=== PATIENT | female | born 1985 | race Two or more races ===

== ENCOUNTER → 2016-09-04 | Outpatient (CLI) | payer MEDICARE | LOC: RAD 15:13 | PROVIDERS: ATTEND Anesthesiology Pain Medicine | DX: M54.5 Low back pain (principal) | CPT/HCPCS: 72114 ==

== ENCOUNTER → 2016-09-17 | Outpatient (CLI) | payer MEDICAID, MEDICARE, OTHER ==
--- NOTE | 2016-09-17 13:09 | RADIOLOGY REPORT (SQ) ---
EXAM DESCRIPTION: MRI LUMBAR SPINE WITHOUT COMPLETED DATE/TIME: 09/17/2016 11:24 am REASON FOR STUDY: LOW BACK PAIN M54.5 LOW BACK PAIN COMPARISON: Lumbar spine films 09/04/2016 TECHNIQUE: Sagittal and Axial imaging includes T1, T2, STIR and gradient echo sequences. Coronal T2/ HASTE imaging. LIMITATIONS: None. FINDINGS: VISUALIZED UPPER ABDOMEN: Limited evaluation. No acute or suspicious findings suggested. SEGMENTATION: No transitional anatomy. The lowest well-developed disc space is labeled L5-S1. ALIGNMENT: Anatomic. VERTEBRAE: Intact. BONE MARROW: Normal. No marrow replacement or reactive changes. DISC SIGNAL: Normal. No significant abnormal signal or loss of height. POSTERIOR ELEMENTS: Generally intact. No pars defect evident. Mild diffuse lumbar facet arthropath y HARDWARE: None in the spine. CORD AND CONUS: Normal in size and signal intensity. Conus at the T12-L1 level. SOFT TISSUES: No aortic aneurysm seen. No bulky retroperitoneal adenopathy or mass. No paraspinal mas s or fluid. L1-L2: No significant spinal stenosis or exit foraminal stenosis. Mild bilateral facet and ligament hypertrophy. L2-L3: No significant spinal stenosis or exit foraminal stenosis.Mild bilateral facet and ligament hy pertrophy. L3-L4: No significant spinal stenosis or exit foraminal stenosis.Mild bilateral facet and ligament hy pertrophy. L4-L5: No significant spinal stenosis or exit foraminal stenosis.Mild bilateral facet and ligament hy pertrophy. L5-S1: No significant spinal stenosis or exit foraminal stenosis.Mild bilateral facet and ligament hy pertrophy. LOWER THORACIC: Incompletely imaged. No stenosis seen. SACRUM: Advanced right SI joint arthritis with joint space narrowing bony sclerosis osteophyte format ion and reactive fatty changes in the adjacent sacrum and innominate bone on the right. OTHER: No other significant findings. IMPRESSION: Right sacroiliac joint arthritis. Mild diffuse lumbar facet hypertrophy. No disc protrusion/herniation or significant lumbar central canal or foraminal stenosis TECHNICAL DOCUMENTATION: JOB ID: [id number] [employer]- All Rights Reserved
== END ==
LOC: RAD 10:28
PROVIDERS: ATTEND Anesthesiology Pain Medicine
DX: M54.5 Low back pain (principal)
CPT/HCPCS: 72148

== ENCOUNTER 2016-12-13 17:21 | Emergency (ER) | payer MEDICARE ==
[2016-12-13 17:29] VITALS: BP 129/60
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
--- NOTE | 2016-12-13 21:25 | RADIOLOGY REPORT (SQ) ---
EXAM DESCRIPTION: FOREARM LEFT COMPLETED DATE/TIME: 12/13/2016 9:00 pm REASON FOR STUDY: LEG PAIN, FOREARM PAIN COMPARISON: None. NUMBER OF VIEWS: Two views. TECHNIQUE: Two radiographic images acquired of the left forearm, including elbow and wrist in at [address] one projection. LIMITATIONS: None. FINDINGS: MINERALIZATION: Normal. BONES: No acute fracture. No worrisome bone lesions. SOFT TISSUES: No obvious swelling or foreign body. OTHER: No other significant finding. IMPRESSION: NO RADIOGRAPHIC EVIDENCE OF ACUTE INJURY. TECHNICAL DOCUMENTATION: JOB ID: [id number] [employer]- All Rights Reserved
== END 2016-12-13 20:18 | disposition home or self-care (01) ==
LOC: ER 17:21 → EEVIPCON 17:21 → ER 20:18
DX: S80.12XA Contusion of left lower leg, initial encounter (principal); S50.12XA Contusion of left forearm, initial encounter; Y04.2XXA Assault by strike against or bumped into by another person, initial encounter; G89.29 Other chronic pain; M54.9 Dorsalgia, unspecified; F17.210 Nicotine dependence, cigarettes, uncomplicated

== ENCOUNTER 2017-01-31 01:23 | Emergency (ER) | payer MEDICARE ==
[2017-01-31] MEDS ORDERED: NORMAL SALINE 1000 ML 1,000 ML IV ONE (01:51)
[2017-01-31] MEDS ORDERED: ONDANSETRON HCL INJ/PF 4 MG/2 ML SDV IV ONE (01:51)
--- NOTE | 2017-01-31 02:21 | ER Document Report ---
ED General - General Chief Complaint: Abdominal Pain Stated Complaint: STOMACH PAIN AND BACK PAIN Time Seen by Provider: 01/31/17 01:50 Notes: Patient is a 32-year-old female who presents with 2 days of right upper quadrant abdominal pain. Does describe it as a dull, throbbing, constant pain. Nothing improves or worsens the pain. She denies any associated diarrhea but does note several episodes of nonbilious vomiting. Has been able to tolerate oral intake and states that this is not worsen her pain. She has a history of similar symptoms in the past for which she was hospitalized when she lived in [place] and was told that she had a thickened gallbladder wall and a dilated common bile duct. She apparently had an ERCP at that time and was told that there was no further indication for surgical management or any other long-term follow-up regarding her biliary system. She has not seen her primary care doctor regarding today's concerns. No fever or constitutional symptoms. TRAVEL OUTSIDE OF THE U[place]S. IN LAST 30 DAYS: No - Related Data Allergies/Adverse Reactions: oral contrast Allergy (Uncoded 12/13/16 17:25) Past Medical History - General Information source: Patient - Social History Smoking Status: Current Every Day Smoker Frequency of alcohol use: None Drug Abuse: None Lives with: Spouse/Significant other Family History: Reviewed & Not Pertinent Patient has suicidal ideation: No Patient has homicidal ideation: No Renal/ Medical History: Denies: Hx Peritoneal Dialysis Traumatic Medical History: Reports: Hx Fractures - back Past Surgical History: Reports: Hx Orthopedic Surgery - bilateral carpal tunnel , hand surgery Review of Systems - Review of Systems Notes: Constitutional: Negative for fever. HENT: Negative for sore throat. Eyes: Negative for visual changes. Cardiovascular: Negative for chest pain. Respiratory: Negative for shortness of breath. Gastrointestinal: Positive for abdominal pain and vomiting Genitourinary: Negative for dysuria. Musculoskeletal: Negative for back pain. Skin: Negative for rash. Neurological: Negative for headaches, weakness or numbness. 10 point ROS negative except as marked above and in HPI. Physical Exam - Vital signs Vitals: Temp Pulse Resp BP Pulse Ox 99.0 F 114 H 16 118/70 100 01/31/17 01:30 01/31/17 01:30 01/31/17 01:30 01/31/17 01:30 01/31/17 01:30 Interpretation: Tachycardic Notes: PHYSICAL EXAMINATION: GENERAL: Well-appearing, well-nourished and in no acute distress. HEAD: Atraumatic, normocephalic. EYES: Pupils equal round and reactive to light, extraocular movements intact, sclera anicteric, conjunctiva are normal. ENT: nares patent, oropharynx clear without exudates. Moist mucous membranes. NECK: Normal range of motion, supple without lymphadenopathy LUNGS: Breath sounds clear to auscultation bilaterally and equal. No wheezes rales or rhonchi. HEART: Regular rate and rhythm without murmurs ABDOMEN: Soft, mild right upper quadrant abdominal pain to palpation without any additional localized tenderness, normoactive bowel sounds. No guarding, no rebound. No masses appreciated. EXTREMITIES: Normal range of motion, no pitting or edema. No cyanosis. NEUROLOGICAL: No focal neurological deficits. Moves all extremities spontaneously and on command. PSYCH: Normal mood, normal affect. SKIN: Warm, Dry, normal turgor, no rashes or lesions noted. Course - Re-evaluation Re-evalutation: 01/31/17 02:17 Patient presents with 2 days of right upper quadrant abdominal pain, found a focal right upper quadrant abdominal tenderness on examination. No rebound or guarding. Patient is otherwise well in appearance, does not appear in any significant distress or discomfort. No CVA tenderness. Overall low clinical suspicion for acute cholecystitis given normal vitals but given her localized right upper quadrant abdominal tenderness, will proceed with right upper quadrant ultrasound to further exclude. Patient has no focal epigastric abdominal tenderness and her clinical history is not consistent with acute pancreatitis. Patient does report that she has had a significant amount of coughing and sneezing recently and feels she may have pulled a muscle was the source of her abdominal pain. This is a possibility although again I would like to exclude more concerning pathologies. If labs and ultrasound are reassuring will plan for symptomatic control and discharge home. 01/31/17 04:35 Right upper quadrant ultrasound does demonstrate mild gallbladder wall thickening and a dilated common bile duct although no evidence of pericholecystic fluid or gallstones. Repeat exam does not show any significant right upper quadrant abdominal tenderness. Patient continues to be well in appearance. All labs including LFTs and bilirubin levels are normal. I do not suspect acute choledocholithiasis or distal obstruction given normal laboratory functions. Patient reports that in the past she has been told that her common bile duct is dilated and actually significantly more than as described tonight on the ultrasound. She reports she is also been told in the past during a prior hospitalization that her gallbladder wall is thick. I have encouraged her to follow-up with her surgeon as an outpatient to consider possible cholecystectomy if she continues to have pain. At this time will discharge with return precautions and follow-up recommendations. Verbal discharge instructions given a the bedside and opportunity for questions given. Medication warnings reviewed. Patient is in agreement with this plan and has verbalized understanding of return precautions and the need for primary care follow-up in the next 24-72 hours. - Vital Signs Vital signs: Temp Pulse Resp BP Pulse Ox 98.1 F 94 17 121/78 100 01/31/17 04:44 01/31/17 04:44 01/31/17 04:44 01/31/17 04:44 01/31/17 04:44 - Laboratory Result Diagrams: 01/31/17 02:32 01/31/17 02:32 Laboratory results interpreted by me: 01/31/17 01/31/17 02:32 02:32 RDW 14.4 H Glucose 134 H Alkaline Phosphatase 35 L - Diagnostic Test Radiology reviewed: Reports reviewed Discharge - Discharge Clinical Impression: Right upper quadrant abdominal pain Condition: Good Disposition: HOME, SELF-CARE Additional Instructions: The gallbladder may be causing her symptoms. Be sure to avoid fat containing foods until you follow-up with a surgeon to have the gallbladder removed as eating these foods will trigger your pain. Please return to the emergency department if you develop a fever greater than 100.4F, persistent vomiting, worsening of your pain, or any other symptoms that are worrisome to you. Referrals: STU COLIN MD [ACTIVE STAFF] - Follow up as needed GRACY SINHA MD [ACTIVE STAFF] - Follow up as needed
[2017-01-31 02:47] LABS: ABSOLUTE EOSINOPHILS # (AUTO) 0.1 10^3/uL (0.0-0.6); ABSOLUTE LYMPHOCYTES (AUTO) 2.7 10^3/uL (0.5-4.7); ABSOLUTE MONOCYTES (AUTO) 0.5 10^3/uL (0.1-1.4); ABSOLUTE NEUT (AUTO) 5.3 10^3/uL (1.7-8.2); BASOPHILS % (AUTO) 0.4 % (0-2); EOSINOPHILS % (AUTO) 1.3 % (0-6); HEMATOCRIT 38.1 % (36.0-47.0); HGB HCT DIFFERENCE 0.9; LYMPHOCYTES % (AUTO) 30.9 % (13-45); MEAN CORPUSCULAR HEMOGLOBIN 29.8 pg (27.0-33.4); MEAN CORPUSCULAR HGB CONC 34.3 g/dL (32.0-36.0); MEAN CORPUSCULAR VOLUME 87 fl (80-97); MONOCYTES % (AUTO) 5.9 % (3-13); RED BLOOD COUNT 4.37 10^6/uL (3.72-5.28); RED CELL DISTRIBUTION WIDTH 14.4 % (11.5-14.0); SEGMENTED NEUTROPHILS % (AUTO) 61.5 % (42-78); WHITE BLOOD COUNT 8.6 10^3/uL (4.0-10.5)
[2017-01-31 02:59] LABS: ALANINE AMINOTRANSFERASE 39 U/L (9-52); ALBUMIN 4.5 g/dL (3.5-5.0); ALKALINE PHOSPHATASE 35 U/L (38-126); ANION GAP 13 (5-19); ASPARTATE AMINO TRANSFERASE 26 U/L (14-36); BILIRUBIN,DIRECT 0.3 mg/dL (0.0-0.4); BILIRUBIN,TOTAL 0.3 mg/dL (0.2-1.3); BLOOD UREA NITROGEN 17 mg/dL (7-20); CALCIUM 9.7 mg/dL (8.4-10.2); CARBON DIOXIDE 24 mmol/L (22-30); CHLORIDE 104 mmol/L (98-107); CREATININE RESULT 0.96 mg/dL (0.52-1.25); GLUCOSE 134 mg/dL (75-110); LIPASE 124.1 U/L (23-300); POTASSIUM 4.9 mmol/L (3.6-5.0); SODIUM 140.7 mmol/L (137-145); TOTAL PROTEIN 7.2 g/dL (6.3-8.2)
--- NOTE | 2017-01-31 03:25 | RADIOLOGY REPORT (SQ) ---
EXAM DESCRIPTION: U/S ABDOMEN LIMITED W/O DOP COMPLETED DATE/TIME: 01/31/2017 3:14 am REASON FOR STUDY: ruq pain, eval cholecystitis COMPARISON: None. TECHNIQUE: Dynamic and static grayscale images acquired of the abdomen and recorded on PACS. Additio nal selected color Doppler and spectral images recorded. LIMITATIONS: None. FINDINGS: PANCREAS: No masses. Visualized pancreatic duct normal caliber. LIVER: No masses. Echotexture normal. LIVER VASCULATURE: Normal directional flow of the main portal vein and hepatic veins. GALLBLADDER: No stones. Gallbladder wall is thickened. ULTRASOUND-DETECTED SMITH'S SIGN: Positive. INTRAHEPATIC DUCTS AND COMMON DUCT: Dilated common bile duct. 7.7 mm. INFERIOR VENA CAVA: Normal flow. AORTA: No aneurysm. RIGHT KIDNEY: Normal size. Normal echogenicity. No solid or suspicious masses. No hydronephrosis. No calcifications. PERITONEAL AND RIGHT PLEURAL SPACE: No ascites or effusions. OTHER: No other significant findings. IMPRESSION: No gallstones noted, however there is thickening of the gallbladder wall and dilatation of the common bile duct. Positive sonographic Smith's sign. TECHNICAL DOCUMENTATION: JOB ID: [id number] [employer]- All Rights Reserved
[2017-01-31 03:36] LABS: APPEARANCE,URINE CLEAR; BILIRUBIN,URINE NEGATIVE (NEGATIVE); GLUCOSE, URINE NEGATIVE (NEGATIVE); KETONES,URINE NEGATIVE (NEGATIVE); LEUKOCYTE ESTERASE,URINE NEGATIVE (NEGATIVE); NITRITE,URINE NEGATIVE (NEGATIVE); PROTEIN,URINE NEGATIVE (NEGATIVE); URINE SPECIFIC GRAVITY 1.004; UROBILINOGEN,URINE NEGATIVE mg/dL (<2.0)
[2017-01-31] MEDS ORDERED: HYDROCODONE/ACETAMINOPHEN 5-325 MG 6 TAB/DSPK PO PRN (04:36)
[2017-01-31 04:46] VITALS: BP 121/78
== END 2017-01-31 04:44 | disposition home or self-care (01) ==
LOC: ER 01:23
DX: R10.11 Right upper quadrant pain (principal); M54.9 Dorsalgia, unspecified; R19.7 Diarrhea, unspecified; F17.200 Nicotine dependence, unspecified, uncomplicated
CPT/HCPCS: 99284; 96361; 96374; 36415; 83690; 84703; 85025; 80053; 81001; 76705; J2405; J7030; A9270

== ENCOUNTER 2017-02-02 22:04 | Observation (INO) | payer MEDICARE ==
[2017-02-02 22:59] LABS: ABSOLUTE EOSINOPHILS # (AUTO) 0.1 10^3/uL (0.0-0.6); ABSOLUTE LYMPHOCYTES (AUTO) 2.7 10^3/uL (0.5-4.7); ABSOLUTE MONOCYTES (AUTO) 0.7 10^3/uL (0.1-1.4); ABSOLUTE NEUT (AUTO) 4.5 10^3/uL (1.7-8.2); BASOPHILS % (AUTO) 0.4 % (0-2); EOSINOPHILS % (AUTO) 0.9 % (0-6); HEMATOCRIT 37.6 % (36.0-47.0); HEMOGLOBIN 12.9 g/dL (12.0-15.5); HGB HCT DIFFERENCE 1.1; LYMPHOCYTES % (AUTO) 33.3 % (13-45); MEAN CORPUSCULAR HEMOGLOBIN 30.5 pg (27.0-33.4); MEAN CORPUSCULAR HGB CONC 34.3 g/dL (32.0-36.0); MEAN CORPUSCULAR VOLUME 89 fl (80-97); MONOCYTES % (AUTO) 8.4 % (3-13); RED BLOOD COUNT 4.23 10^6/uL (3.72-5.28)
[2017-02-02 23:16] LABS: ALANINE AMINOTRANSFERASE 37 U/L (9-52); ALBUMIN 4.6 g/dL (3.5-5.0); ALKALINE PHOSPHATASE 32 U/L (38-126); ANION GAP 14 (5-19); ASPARTATE AMINO TRANSFERASE 17 U/L (14-36); BILIRUBIN,DIRECT 0.4 mg/dL (0.0-0.4); BILIRUBIN,TOTAL 0.5 mg/dL (0.2-1.3); BLOOD UREA NITROGEN 20 mg/dL (7-20); CALCIUM 9.3 mg/dL (8.4-10.2); CARBON DIOXIDE 28 mmol/L (22-30); CHLORIDE 102 mmol/L (98-107); GLUCOSE 102 mg/dL (75-110); TOTAL PROTEIN 7.3 g/dL (6.3-8.2)
[2017-02-02] MEDS ORDERED: ONDANSETRON HCL INJ/PF 4 MG/2 ML SDV IV ONE (23:23)
[2017-02-02 23:27] LABS: ADD ON TESTING BLD IN LAB ACKNOWLEDGE
--- NOTE | 2017-02-02 23:27 | ER Document Report ---
ED General - General Chief Complaint: Abdominal Pain Stated Complaint: ABDOMINAL PAIN Time Seen by Provider: 02/02/17 23:04 TRAVEL OUTSIDE OF THE U.S. IN LAST 30 DAYS: No - HPI Notes: Patient is a 32-year-old female with a history of gallbladder disease who presents the ED complaining of continued right upper quadrant pain, nausea/ vomiting. Patient states that she was evaluated general surgery today and was told to come to the ED with any worsening pain or symptoms. Patient was to get scheduled for an elective surgical removal of her gallbladder, but could not get scheduled for a couple weeks. Surgeon also wanted her to have an evaluation for her pelvic pain and an ultrasound performed prior to her surgery. Patient states that she has had bilateral adnexal pain for 2 years that does not radiate. She has not had any vaginal discharge, bleeding, or odor. Patient last ate at 1500 today. Patient has had 4 episodes of dry heaves and 2 episodes of vomiting. Patient states that she wants her gallbladder taken out which is another reason why she came to the ED. Patient had reported gallbladder disease years ago while in [place] with a dilated common bile duct and thickening of her gallbladder. Patient was evaluated 2 days ago and had an ultrasound and workup performed at that time. Ultrasound did confirm the thickened gallbladder. There was no evidence of acute cholecystitis, choledocholithiasis, cholangitis, or pancreatitis at that time. Denies any headache, fever, neck pain, URI, sore throat, chest pain, palpitations, syncope, cough, shortness of breath, wheeze, dyspnea, diarrhea, urinary retention, dysuria, hematuria, loss of control of bowel or bladder, numbness/tingling, saddle anesthesia, muscle paralysis/weakness, or rash. - Related Data Allergies/Adverse Reactions: oral contrast Allergy (Uncoded 12/13/16 17:25) Past Medical History - Social History Smoking Status: Unknown if Ever Smoked Family History: Reviewed & Not Pertinent Patient has suicidal ideation: No Patient has homicidal ideation: No Renal/ Medical History: Denies: Hx Peritoneal Dialysis Traumatic Medical History: Reports: Hx Fractures - back Past Surgical History: Reports: Hx Orthopedic Surgery - bilateral carpal tunnel , hand surgery Review of Systems - Review of Systems Notes: REVIEW OF SYSTEMS: CONSTITUTIONAL : Denies fever, chills, or sweats. Denies recent illness. EENT: Denies eye, ear, throat, or mouth pain or symptoms. Denies nasal or sinus congestion or discharge. Denies throat, tongue, or mouth swelling or difficulty swallowing. CARDIOVASCULAR: Denies chest pain. Denies palpitations or racing or irregular heart beat. Denies ankle edema. RESPIRATORY: Denies cough, cold, or chest congestion. Denies shortness of breath, difficulty breathing, or wheezing. GASTROINTESTINAL: see hpi. GENITOURINARY: Denies difficulty urinating, painful urination, burning, frequency, blood in urine, or discharge. FEMALE GENITOURINARY: see hpi. Denies vaginal bleeding, heavy or abnormal periods, irregular periods. Denies vaginal discharge or odor. MUSCULOSKELETAL: Denies back or neck pain or stiffness. Denies joint pain or swelling. SKIN: Denies rash, lesions or sores. NEUROLOGICAL: Denies confusion or altered mental status. Denies passing out or loss of consciousness. Denies dizziness or lightheadedness. Denies headache. Denies weakness or paralysis or loss of use of either side. Denies problems with gait or speech. Denies sensory loss, numbness, or tingling. ALL OTHER SYSTEMS REVIEWED AND NEGATIVE. Dictation was performed using [employer] voice recognition software Physical Exam - Vital signs Vitals: Temp Pulse Resp BP Pulse Ox 98.7 F 97 16 106/86 H 99 02/02/17 22:08 02/02/17 22:08 02/02/17 22:08 02/02/17 22:08 02/02/17 22:08 Notes: PHYSICAL EXAMINATION: GENERAL: Well-appearing, well-nourished and in no acute distress. A&Ox4 HEAD: Atraumatic, normocephalic. EYES: Pupils equal round and reactive to light, extraocular movements intact, conjunctiva are normal. ENT: Nares patent, oropharynx clear without exudates. Moist mucous membranes. EAC's clear bilaterally. TMs intact bilaterally without erythema fluid or perforation. No tonsillar hypertrophy or erythema. No sinus tenderness. NECK: Normal range of motion, supple without lymphadenopathy LUNGS: Breath sounds clear to auscultation bilaterally and equal. No wheezes rales or rhonchi. HEART: Regular rate and rhythm without murmurs ABDOMEN: Soft, nondistended abdomen. No guarding, no rebound. No masses appreciated. Normal bowel sounds present. CVA tenderness negative bilaterally. + tenderness to the RUQ. + mild tenderness to the pelvic area w/o r/g. Female : No inguinal adenopathy. External genitalia without erythema, lesions , or masses. Vaginal mucosa pink. Cervix parous, pink, and without discharge. Uterus is smooth. adnexal mild tenderness b/l. Musculoskeletal: FROM to passive/active. Strength 5+/5. Extremities: No cyanosis/clubbing/edema b/l. Peripheral pulses 2+. Capillary refill less than 3 seconds. NEUROLOGICAL: Cranial nerves grossly intact. Normal speech, normal gait. Normal sensory, motor exams PSYCH: Normal mood, normal affect. SKIN: Warm, Dry, normal turgor, no rashes or lesions noted. Course - Re-evaluation Re-evalutation: 02/03/17 02:[address] Pagan as well: Patient is an afebrile, well-hydrated, 32-year-old female who presents the ED with right upper quadrant pain, thickened gallbladder with dilatation, and chronic pelvic pain. Vitals are stable. PE is otherwise unremarkable. CBC, CMP, , urinalysis unremarkable. Transvaginal ultrasound, wet mount was also unremarkable. Chlamydia and gonorrhea tests are still pending. Patient continues to have pain despite 2 mg of morphine and Zofran, but she did have some pain relief momentarily with medication and nausea relief as well. Patient has not vomited while in the ED. Patient continues to complain of pain and nausea however. I did call Dr. Shay and began going to the patient's history, but heard a dial-tone nursing home through her story. I gave him about an hour now to call me back or show up, but have not heard from him. I will try him again in the later morning as her labs are unremarkable currently and discuss with him then. Reviewed again with the patient and Dr. Pagan. Advised that I am not sure about the current communication that I had with the surgeon. Currently we are able to control her pain and nausea to a tolerable level. Pt states that she is willing to wait for me to call again later in the morning while knowing the risk that he may declined to perform the surgery and she would have been staying in the ED unnecessarily. Reviewed with patient that I will try him again later this morning to review again as she does not have any abnormal labs at this time and is stable. We will continue pain and nausea management while keeping her NPO. Dilaudid 0.5mg ordered IV along with 10mg Reglan. 02/03/17 05:[address] Shay. Pt continues to have pain that we have been aiding with dilaudid x2 and another dose of zofran for the nausea. Pt continues to be symptomatic and continues to request the surgery. Dr. Shay accepted patient and would like her admitted and he will do the surgery today. Pt has been NPO x14.5 hours now. - Vital Signs Vital signs: Temp Pulse Resp BP Pulse Ox 98.7 F 97 16 106/86 H 99 02/02/17 22:08 02/02/17 22:08 02/02/17 22:08 02/02/17 22:08 02/02/17 22:08 - Laboratory Result Diagrams: 02/02/17 22:32 02/02/17 22:32 Laboratory results interpreted by me: 02/02/17 02/02/17 02/02/17 22:32 22:32 23:40 RDW 15.0 H Alkaline Phosphatase 32 L Urine Urobilinogen 2.0 H Urine Ascorbic Acid 20 H Procedures - Pelvic Exam Pelvic exam Time completed: 12:45 Cultures obtained: Yes Wet prep obtained: Yes Bimanual exam performed: Yes - neg Witnessed by: Female PCT Discharge - Discharge Clinical Impression: Right upper quadrant pain, Pelvic pain, Thickening of wall of gallbladder Condition: Stable Disposition: ADMITTED INPATIENT Admitting Provider: Surgicalist - Dr. Shay Unit Admitted: Surgical Floor
[2017-02-02] MEDS ORDERED: MORPHINE SULFATE 10 MG/ML INJ IV ONE (23:32)
[2017-02-02] MEDS ORDERED: MORPHINE SULFATE 10 MG/ML INJ ONE (23:33)
[2017-02-02 23:40] LABS: LIPASE 117.3 U/L (23-300)
[2017-02-03 00:12] LABS: APPEARANCE,URINE CLEAR; BILIRUBIN,URINE NEGATIVE (NEGATIVE); GLUCOSE, URINE NEGATIVE (NEGATIVE); KETONES,URINE NEGATIVE (NEGATIVE); LEUKOCYTE ESTERASE,URINE NEGATIVE (NEGATIVE); NITRITE,URINE NEGATIVE (NEGATIVE); PROTEIN,URINE NEGATIVE (NEGATIVE); URINE SPECIFIC GRAVITY 1.029
--- NOTE | 2017-02-03 00:59 | RADIOLOGY REPORT (SQ) ---
EXAM DESCRIPTION: U/S NON OB PEL TV W/DOPPLER COMPLETED DATE/TIME: 02/03/2017 12:35 am REASON FOR STUDY: pelvic pain x2 years. Mirena IUD placed in February 2014. COMPARISON: None. TECHNIQUE: Grayscale images acquired of the pelvis via transvaginal approach and recorded on PACS. A dditional selected color Doppler and spectral images recorded. LIMITATIONS: None. FINDINGS: UTERUS: Measures 7.6 x 5.3 x 3.6 cm. No focal myometrial mass. ENDOMETRIAL STRIPE: Measures 4.2 mm in double wall thickness. Intrauterine device noted in the endom etrial cavity, appears in appropriate position. CERVIX: Measures 2.3 cm in length. Nabothian cyst present. The IUD strings noted in the endocervica l canal. RIGHT OVARY: Measures 3.5 x 2.3 x 1.7 cm. Flow by Doppler was shown to the right ovary. LEFT OVARY: Measures 3.4 x 1.8 x 2.1 cm. Flow by Doppler was shown to the left ovary. FREE FLUID: None noted. IMPRESSION: Unremarkable pelvic ultrasound. TECHNICAL DOCUMENTATION: JOB ID: [id number] [employer]- All Rights Reserved
[2017-02-03] MEDS ORDERED: HYDROMORPHONE HCL INJ/PF 2 MG/ML AMPULE IV ONE ×2 (02:13→05:19)
[2017-02-03] MEDS ORDERED: METOCLOPRAMIDE HCL INJ/PF 10 MG/2 ML SDV IV ONE (02:13)
[2017-02-03] MEDS ORDERED: NORMAL SALINE 1000 ML 1,000 ML IV PRN ×2 (02:21)
[2017-02-03 02:36] LABS: CHLAM PCR NOT DETECTED (NOT DETECT)
[2017-02-03] MEDS ORDERED: ONDANSETRON HCL INJ/PF 4 MG/2 ML SDV IV ONE (05:19)
[2017-02-03] MEDS ORDERED: SUCCINYLCHOLINE CHLORIDE INJ 200 MG/10 ML VIAL ONE (09:08)
[2017-02-03] MEDS ORDERED: ROCURONIUM BROMIDE INJ 50 MG/5 ML VIAL IV ONE (09:08)
[2017-02-03] MEDS ORDERED: HYDROMORPHONE HCL INJ/PF 2 MG/ML AMPULE IV PRN (09:26)
[2017-02-03] MEDS ORDERED: ONDANSETRON HCL INJ/PF 4 MG/2 ML SDV IV PRN (09:27)
--- NOTE | 2017-02-03 13:52 | RADIOLOGY REPORT (SQ) ---
EXAM DESCRIPTION: NM HIDA SCAN WITH CCK COMPLETED DATE/TIME: 02/03/2017 1:38 pm REASON FOR STUDY: R/O acute destin, add CCK to check ejection fraction if gb fills up COMPARISON: Ultrasound from recently. RADIONUCLIDE AND DOSE: DOSAGE RADIONUCLIDE: 5.36 millicuries Tc99m Mebrofenin. DOSAGE CCK: 1.2 micrograms. DOSAGE MORPHINE: Not required. The route of agent administration: Intravenous TECHNIQUE: Serial imaging right upper quadrant up to 60 minutes following injection of radionuclide. CCK injected after gallbladder visualized. LIMITATIONS: None. FINDINGS: LIVER: Normal visualization without areas of photopenia. INTRAHEPATIC BILE DUCTS: Normal size and no delay in visualization. COMMON BILE DUCT: Normal without dilatation. GALLBLADDER: Normal visualization. Calculated ejection fraction of 82%. Normal range is greater th an 35%. PHYSICAL RESPONSE: Patients presenting complaint was reproduced. OTHER: No other significant finding. IMPRESSION: 1. Despite reproduction of patient's symptoms with CCK administration, gallbladder eject ion fraction is normal. TECHNICAL DOCUMENTATION: JOB ID: [id number] [employer]- All Rights Reserved
[2017-02-03] MEDS: HYDROMORPHONE HCL INJ/PF 2 MG/ML AMPULE IV PRN ×3 (14:00→23:48)
[2017-02-03] MEDS ORDERED: CEFAZOLIN INJ 1 GM VIAL ONE (14:40)
[2017-02-03] MEDS ORDERED: BUPIVACAINE HCL 0.25% /EPINEPHRINE INJ/PF 30 ML SDV ONE (14:45)
[2017-02-03] MEDS ORDERED: FENTANYL CITRATE INJ/PF 250 MCG/5 ML AMPULE ONE (14:50)
[2017-02-03] MEDS ORDERED: DEXAMETHASONE SOD PHOSPHATE INJ 4 MG/1 ML VIAL ONE (14:50)
[2017-02-03] MEDS ORDERED: MIDAZOLAM 2 MG/2 ML INJ ONE (14:50)
[2017-02-03] MEDS ORDERED: ONDANSETRON HCL INJ/PF 4 MG/2 ML SDV ONE (14:50)
[2017-02-03] MEDS ORDERED: PROPOFOL INJ 200 MG/20 ML VIAL IV ONE (14:50)
[2017-02-03] MEDS ORDERED: MORPHINE SULFATE 10 MG/ML INJ ONE (14:51)
[2017-02-03] MEDS ORDERED: IBUPROFEN INJ 800 MG/8 ML VIAL IV ONE (14:51)
[2017-02-03] MEDS ORDERED: DIPHENHYDRAMINE HCL 50 MG/ML VIAL IV PRN (15:40)
[2017-02-03] MEDS ORDERED: OXYCODONE-ACETAMINOPHEN 5-325 MG TABLET PO PRN ×2 (15:40)
[2017-02-03] MEDS ORDERED: FENTANYL CITRATE INJ/PF 100 MCG/2 ML AMPUL IV PRN ×3 (15:40)
[2017-02-03] MEDS ORDERED: MEPERIDINE HCL/PF INJ 25 MG/1 ML DISP.SYRIN IV PRN (15:40)
[2017-02-03] MEDS ORDERED: MORPHINE SULFATE 10 MG/ML INJ IV PRN (15:40)
[2017-02-03] MEDS ORDERED: PROMETHAZINE HCL INJ 25 MG/1 ML VIAL IV PRN ×2 (15:40)
[2017-02-03] MEDS: FENTANYL CITRATE INJ/PF 100 MCG/2 ML AMPUL ONE ×2 (16:25→16:35)
[2017-02-03] MEDS ORDERED: HYDROMORPHONE HCL INJ/PF 2 MG/ML AMPULE ONE (16:55)
[2017-02-03] MEDS ORDERED: LORAZEPAM INJ 2 MG/1 ML VIAL ONE (17:07)
[2017-02-03] MEDS: SIMETHICONE 80 MG TAB.CHEW PO PRN ×2 (17:50→20:37)
--- NOTE | 2017-02-03 20:03 | OPERATIVE REPORT E ---
Operative Report NAME: TANYA YEH : 1985 AGE: 32Y DATE OF SURGERY: 02/03/2017 ROOM: 407 PREOPERATIVE DIAGNOSIS: Biliary dyskinesia. POSTOPERATIVE DIAGNOSIS: Biliary dyskinesia. OPERATION: Laparoscopic cholecystectomy. SURGEON: ERNESTINE TELLO M.D. ANESTHESIA: General. INDICATION: This is a 32-year-old female with right upper quadrant pains for the past few days. She had an ultrasound of the gallbladder that showed thickened wall but no stones. She had a HIDA scan today which showed the gallbladder filling up, but on injection of CCK, her pains were reproduced. The patient has been having pain for quite sometime now. DESCRIPTION OF PROCEDURE: After adequate general anesthesia, the patient was placed in supine position and the abdomen prepped and draped in the usual sterile fashion. Appropriate timeout was called. Next, an infraumbilical elliptical incision was made and the fascia identified and divided between Lacy clamps. A Hiral trocar inserted through the fascia into the abdominal cavity and CO2 insufflated up to a pressure of 15 mmHg through the trocar. Next, three other trocars were placed under direct vision; a 12 mm in the subxiphoid and two 5 mm trocars in the right upper quadrant. The gallbladder was then identified, noted to be somewhat congested and a thickened wall. The fundus was grasped and elevated over the liver, and the infundibulum was subsequently grasped. The common bile duct appears to be dilated very close to the gallbladder. The cystic duct was then dissected and isolated. It was then clipped with hemoclips. Three clips placed on the proximal side and a single clip towards the gallbladder site and divided between the clips. Cystic artery was also identified, clipped with hemoclips, and divided with the use of harmonic maria esther just below the gallbladder. The gallbladder was then removed from the liver bed with the use of harmonic maria esther. There was some small amount of bleeding on the liver bed, and this was controlled with the spatula cautery. The gallbladder was then completely removed and placed in an Endo-Bag and pulled out through the umbilicus port. Trocars were put back and the operative site inspected and irrigated. No active bleeding noted. Following this, all the trocars were removed and CO2 allowed to come out of the trocar sites. Then, the infundibulum fascial defect closed with a [id number] suture using #0-Vicryl and all the skin incisions closed with running subcuticular closure using 4-0 Vicryl undyed. Sterile dressings placed over the operative sites. The patient tolerated the procedure well. ESTIMATED BLOOD LOSS: About 5 mL. DISPOSITION: The patient brought back to the recovery room in stable condition. She might need further workup including MRCP just to verify the size of the common bile duct. DICTATING PHYSICIAN: ERNESTINE TELLO M.D. [id number] PHY#: [id number] ID: [id number] JOB#: [id number] ACCT: [id number] cc:ERNESTINE TELLO M.D. >
[2017-02-03] MEDS: OXYCODONE-ACETAMINOPHEN 5-325 MG TABLET PO PRN (21:01)
[2017-02-04] MEDS: OXYCODONE-ACETAMINOPHEN 5-325 MG TABLET PO PRN ×2 (02:00→06:30)
[2017-02-04] MEDS: HYDROMORPHONE HCL INJ/PF 2 MG/ML AMPULE IV PRN ×2 (04:11→07:31)
[2017-02-04 07:35] VITALS: BP 110/68
--- NOTE | 2017-02-04 07:47 | DISCHARGE SUMMARY E ---
Discharge Summary NAME: TANYA YEH : 1985 AGE: 32Y ADMITTED: 02/03/2017 DISCHARGED: 02/04/2017 FINAL DIAGNOSES: 1. Biliary dyskinesia. 2. Slightly dilated common bile duct. PROCEDURE DONE: Laparoscopic cholecystectomy 02/03/17. SURGEON: Ernestine Shay M.D. HOSPITAL COURSE: This is a 33-year-old female with right upper quadrant abdominal pains. Ultrasound showed thickened gallbladder wall and slightly dilated common bile duct about 7.7 mm. She had a HIDA scan just prior to surgery and the gallbladder lit up, and also it has a good ejection fraction; however, when CCK was injected, it reproduced patient's pain. Therefore, removal of the gallbladder at this point is indicated. A laparoscopic cholecystectomy was then performed on 02/03/17. Postoperatively, patient was uneventful. At the time of the surgery, the common bile duct appears to be somewhat dilated and very close to the gallbladder and cystic duct. Cystic duct appears to be very short. The next day, on 02/04/17, patient did very well. The pains are less. Incision is clean and dry. Patient will be discharged on 02/04/17 with a final diagnosis of biliary colic and slightly dilated common bile duct. PLAN: Continue patient on the p.r.n. pain medication with Percocet, and she was advised not to do any lifting more than 15 pounds for the next week. She can have a regular diet. She may need a followup MRCP and also follow up on her liver functions in the clinic. DICTATING PHYSICIAN: ERNESTINE SHAY M.D. [id number] Y#: [id number] ID: [id number] JOB#: [id number] ACCT: [id number] cc:ERNESTINE SHAY M.D. [facility],
== END 2017-02-04 08:00 | disposition home or self-care (01) ==
LOC: ER 22:04 → EH 02-03 06:04 → INTOOBSV 02-03 06:04 → EEVIPCON 02-03 06:04 → 4N 02-03 07:19
PROVIDERS: ATTEND Surgery
PROC: 0FT44ZZ Resection of Gallbladder, Percutaneous Endoscopic Approach (ICD-10-PCS; principal; 2017-02-03 15:00)
DX: K81.1 Chronic cholecystitis (principal); K82.8 Other specified diseases of gallbladder; K83.8 Other specified diseases of biliary tract; F17.210 Nicotine dependence, cigarettes, uncomplicated; G89.29 Other chronic pain; R10.2 Pelvic and perineal pain
CPT/HCPCS: 96376; 99285; 96361; 96374; 96375; 36415 ×2; 87210; 84702; 83690; 84132; 85025; 80053; 81001; 87491; 87591; 88304 ×2; 76830; 93976; 78227; 47562; A9537; J2250; J3490 ×2; J0690; J1100; J3010 ×2; J2765; J2270 ×2; A9270 ×3; J1170 ×2; J2060; J0330; J2405 ×2; J7030; J2704; Q9969; J1741; 790; J2805

== ENCOUNTER 2017-02-05 12:41 | Emergency (ER) | payer MEDICARE ==
[2017-02-05] MEDS ORDERED: NORMAL SALINE 1000 ML 1,000 ML IV ONE (13:04)
[2017-02-05] MEDS ORDERED: DIPHENHYDRAMINE HCL 50 MG/ML VIAL IV ONE (13:05)
[2017-02-05] MEDS ORDERED: FAMOTIDINE INJ/PF 20 MG/2 ML SDV IV ONE (13:05)
[2017-02-05] MEDS ORDERED: METHYLPREDNISOLONE INJ 125 MG/2 ML SDV IV ONE (13:05)
--- NOTE | 2017-02-05 13:18 | ER Document Report ---
ED Medical Screen (RME) - General Chief Complaint: Chest Pain Stated Complaint: CHEST PAIN Time Seen by Provider: 02/05/17 13:04 Mode of Arrival: Ambulatory Information source: Patient TRAVEL OUTSIDE OF THE [place] IN LAST 30 DAYS: No - HPI Patient complains to provider of: CP/allergic rxn Onset: This morning - pt is S/P gall bladder surgery 2 days ago -- took percocet and developed CP this am as well as pruritis and rash. Denies SOB - Related Data Allergies/Adverse Reactions: oral contrast Allergy (Uncoded 02/05/17 12:50) Past Medical History Renal/ Medical History: Denies: Hx Peritoneal Dialysis Psychiatric Medical History: Reports: Hx Depression - anxiety Traumatic Medical History: Reports: Hx Fractures - back Past Surgical History: Reports: Hx Orthopedic Surgery - bilateral carpal tunnel , hand surgery - Immunizations History of Influenza Vaccine for 01/2017 - 06/2017 Season: Refused Physical Exam - Vital signs Vitals: Temp Pulse Resp BP Pulse Ox 97.8 F 82 20 81/58 L 100 02/05/17 12:43 02/05/17 12:43 02/05/17 12:43 02/05/17 12:43 02/05/17 12:43 Course - Vital Signs Vital signs: Temp Pulse Resp BP Pulse Ox 97.8 F 82 20 81/58 L 100 02/05/17 12:43 02/05/17 12:43 02/05/17 12:43 02/05/17 12:43 02/05/17 12:43
[2017-02-05 13:44] LABS: ABSOLUTE EOSINOPHILS # (AUTO) 0.1 10^3/uL (0.0-0.6); ABSOLUTE LYMPHOCYTES (AUTO) 2.5 10^3/uL (0.5-4.7); ABSOLUTE MONOCYTES (AUTO) 0.5 10^3/uL (0.1-1.4); ABSOLUTE NEUT (AUTO) 5.3 10^3/uL (1.7-8.2); BASOPHILS % (AUTO) 0.5 % (0-2); EOSINOPHILS % (AUTO) 0.8 % (0-6); HEMOGLOBIN 12.6 g/dL (12.0-15.5); HGB HCT DIFFERENCE 0.8; LYMPHOCYTES % (AUTO) 29.9 % (13-45); MEAN CORPUSCULAR HEMOGLOBIN 30.6 pg (27.0-33.4); MEAN CORPUSCULAR HGB CONC 34.1 g/dL (32.0-36.0); MEAN CORPUSCULAR VOLUME 90 fl (80-97); MONOCYTES % (AUTO) 6.4 % (3-13); RED BLOOD COUNT 4.13 10^6/uL (3.72-5.28); RED CELL DISTRIBUTION WIDTH 14.9 % (11.5-14.0); SEGMENTED NEUTROPHILS % (AUTO) 62.4 % (42-78); WHITE BLOOD COUNT 8.4 10^3/uL (4.0-10.5)
[2017-02-05 14:00] LABS: ALANINE AMINOTRANSFERASE 93 U/L (9-52); ALBUMIN 4.6 g/dL (3.5-5.0); ALKALINE PHOSPHATASE 40 U/L (38-126); ANION GAP 12 (5-19); ASPARTATE AMINO TRANSFERASE 29 U/L (14-36); BILIRUBIN,DIRECT 0.3 mg/dL (0.0-0.4); BILIRUBIN,TOTAL 0.5 mg/dL (0.2-1.3); BLOOD UREA NITROGEN 16 mg/dL (7-20); CALCIUM 9.6 mg/dL (8.4-10.2); CARBON DIOXIDE 30 mmol/L (22-30); CHLORIDE 102 mmol/L (98-107); CREATINE KINASE 41 U/L (30-135); CREATININE RESULT 0.83 mg/dL (0.52-1.25); GLUCOSE 100 mg/dL (75-110); POTASSIUM 4.8 mmol/L (3.6-5.0); SODIUM 143.9 mmol/L (137-145); TOTAL PROTEIN 7.2 g/dL (6.3-8.2)
[2017-02-05] MEDS ORDERED: MORPHINE SULFATE 10 MG/ML INJ IV ONE (14:08)
[2017-02-05 14:13] LABS: CREATINE KINASE MB 0.26 ng/mL (<4.55); TROPONIN I < 0.012 ng/mL
[2017-02-05] MEDS ORDERED: NORMAL SALINE 1000 ML 1,000 ML IV PRN (14:42)
--- NOTE | 2017-02-05 14:43 | ER Document Report ---
ED General - General Chief Complaint: Chest Pain Stated Complaint: CHEST PAIN Time Seen by Provider: 02/05/17 13:04 Mode of Arrival: Ambulatory Information source: Patient TRAVEL OUTSIDE OF THE [place] IN LAST 30 DAYS: No - HPI Patient complains to provider of: chest pain, itching Onset: This morning Onset/Duration: Sudden Quality of pain: Dull Severity: Moderate Pain Level: 3 Associated symptoms: Hurts to breath, Shortness of breath Exacerbated by: Movement, Coughing, Deep breathing Relieved by: Denies Recently seen / treated by doctor: Yes Notes: Patient is a 32-year-old female presenting to the emergency room today complaining of chest pain, upper abdominal pain with nausea, and itchy skin, symptoms started after she took Percocet which she is taking for postoperative pain, she had her gallbladder taken out 2 days ago, she has taken Percocet in the past without any difficulties, she does report that it hurts when she takes a deep breath although this is also in the right upper quadrant area where she recently had surgery, she is a smoker and has an IUD, no history of DVT or PE previously - Related Data Allergies/Adverse Reactions: oral contrast Allergy (Uncoded 02/05/17 12:50) Past Medical History - General Information source: Patient - Social History Smoking Status: Current Every Day Smoker Chew tobacco use (# tins/day): No Frequency of alcohol use: None Drug Abuse: None Family History: Reviewed & Not Pertinent Patient has suicidal ideation: No Patient has homicidal ideation: No Renal/ Medical History: Denies: Hx Peritoneal Dialysis Psychiatric Medical History: Reports: Hx Depression - anxiety Traumatic Medical History: Reports: Hx Fractures - back Past Surgical History: Reports: Hx Cholecystectomy, Hx Orthopedic Surgery - bilateral carpal tunnel, hand surgery Review of Systems - Review of Systems Constitutional: No symptoms reported EENT: No symptoms reported Cardiovascular: See HPI Respiratory: No symptoms reported Gastrointestinal: See HPI Genitourinary: No symptoms reported Female Genitourinary: No symptoms reported Musculoskeletal: No symptoms reported Skin: No symptoms reported Hematologic/Lymphatic: No symptoms reported Neurological/Psychological: No symptoms reported -: Yes All other systems reviewed and negative Physical Exam - Vital signs Vitals: Temp Pulse Resp BP Pulse Ox 97.8 F 82 20 81/58 L 100 02/05/17 12:43 02/05/17 12:43 02/05/17 12:43 02/05/17 12:43 02/05/17 12:43 Interpretation: Normal - General General appearance: Appears well, Alert - HEENT Head: Normocephalic, Atraumatic Eyes: Normal Pupils: PERRL - Respiratory Respiratory status: No respiratory distress Chest status: Nontender Breath sounds: Normal Chest palpation: Normal - Cardiovascular Rhythm: Regular Heart sounds: Normal auscultation Murmur: No - Abdominal Inspection: Fresh incision - Incisions are clean dry and intact, there is ecchymosis in the lower abdomen Distension: No distension Bowel sounds: Normal Tenderness: Tender - Right upper quadrant and epigastric as well as suprapubic Organomegaly: No organomegaly - Back Back: Normal, Nontender - Extremities General upper extremity: Normal inspection, Nontender, Normal color, Normal ROM , Normal temperature General lower extremity: Normal inspection, Nontender, Normal color, Normal ROM , Normal temperature, Normal weight bearing. No: Augustina's sign - Neurological Neuro grossly intact: Yes Cognition: Normal Orientation: AAOx4 Andrey Coma Scale Eye Opening: Spontaneous [place] Coma Scale Verbal: Oriented Andrey Coma Scale Motor: Obeys Commands Andrey Coma Scale Total: 15 Speech: Normal Motor strength normal: LUE, RUE, LLE, RLE Sensory: Normal - Psychological Associated symptoms: Normal affect, Normal mood - Skin Skin Temperature: Warm Skin Moisture: Dry Skin Color: Normal Course - Re-evaluation Re-evalutation: 02/05/17 15:21 Patient resting comfortably, reports feeling much better, lab and imaging findings were discussed with patient at bedside which are fairly unremarkable, symptoms likely related to adverse reaction to medication she is taking at home for pain, she will be given a prescription for hydrocodone which she is taken in the past without any difficulties, advised to follow-up with the surgeon in 2 -3 days or return if symptoms worsen, patient acknowledges understanding and agreement with this plan - Vital Signs Vital signs: Temp Pulse Resp BP Pulse Ox 97.8 F 82 11 L 123/52 L 100 02/05/17 12:43 02/05/17 12:43 02/05/17 15:30 02/05/17 15:30 02/05/17 15:30 - Laboratory Result Diagrams: 02/05/17 13:16 02/05/17 13:16 Laboratory results interpreted by me: 02/05/17 02/05/17 13:16 13:16 RDW 14.9 H ALT 93 H - Diagnostic Test Radiology reviewed: Image reviewed, Reports reviewed - EKG Interpretation by Me EKG shows normal: Sinus rhythm Rate: Normal Rhythm: NSR Discharge - Discharge Clinical Impression: Chest pain Qualifiers: Chest pain type: unspecified Qualified Code(s): R07.9 - Chest pain, unspecified Adverse reaction to drug Qualifiers: Encounter type: initial encounter Qualified Code(s): T88.7XXA - Unspecified adverse effect of drug or medicament, initial encounter Condition: Stable Disposition: HOME, SELF-CARE Instructions: Chest Pain of Unclear Cause ([facility]), Oral Narcotic Medication ([facility]) Additional Instructions: Follow up with your primary care provider in one to 2 days. Return to the emergency room immediately if symptoms worsen or any additional concerns. Prescriptions: Hydrocodone/Acetaminophen [Hydrocodon-Acetaminophen 5-325] 1 each PO Q6 #20 tablet
--- NOTE | 2017-02-05 15:10 | RADIOLOGY REPORT (SQ) ---
EXAM DESCRIPTION: CTA CHEST COMPLETED DATE/TIME: 02/05/2017 2:56 pm REASON FOR STUDY: SOB COMPARISON: None. TECHNIQUE: CT scan of the chest performed using helical scanning technique with dynamic intravenous contrast injection. Images reviewed with lung, soft tissue and bone windows. Reconstructed coronal and sagittal MPR images reviewed. Additional 3 dimensional post-processing performed to develop Maximal Intensity Projection images (AR P). All images stored on PACS. All CT scanners at this facility use dose modulation, iterative reconstruction, and/or weight based d osing when appropriate to reduce radiation dose to as low as reasonably achievable (ALARA). [facility]: Dose Right [facility]: CareDose [facility]: Dose Right [facility]: Teradose 4D [facility]: DailyStrength CONTRAST TYPE AND DOSE: contrast/concentration: Isovue 370.00 mg/ml; Total Contrast Delivered: 59.0 ml; Total Saline Delivered: 104.0 ml Contrast bolus optimized for the pulmonary arteries. Not diagnostic for the aorta. RENAL FUNCTION: Creatinine 0.8 BUN 16 RADIATION DOSE: Up-to-date CT equipment and radiation dose reduction techniques were employed. CTDIv ol: 5.1 - 14.1 mGy. DLP: 1022 mGy-cm. . LIMITATIONS: None. FINDINGS: LUNGS AND PLEURA: No masses, infiltrates, pneumothorax. No pleural effusions, calcificati ons. AORTA AND GREAT VESSELS: No aneurysm. Contrast bolus not optimized for the aorta. HEART: No pericardial effusion. No significant coronary artery calcifications. PULMONARY ARTERIES: No emboli visualized in the main pulmonary arteries or the segmental branches. HILAR AND MEDIASTINAL STRUCTURES: No identified masses or abnormal nodes. HARDWARE: None in the chest. UPPER ABDOMEN: See separate report of the CT of the abdomen. THYROID AND OTHER SOFT TISSUES: No masses. No adenopathy. BONES: No acute or significant finding. 3D MIPS: Confirm above findings. OTHER: No other significant finding. IMPRESSION: NORMAL CTA OF THE CHEST. NO PULMONARY EMBOLI. COMMENT: Quality ID # [id number]: Final reports with documentation of one or more dose reduction techniques (e.g., Automated exposure control, adjustment of the mA and/or kV according to patient size, use of iterative reconstruction technique) TECHNICAL DOCUMENTATION: JOB ID: [id number] [employer]- All Rights Reserved
--- NOTE | 2017-02-05 15:12 | RADIOLOGY REPORT (SQ) ---
EXAM DESCRIPTION: CT ABD/PELVIS WITH IV ONLY COMPLETED DATE/TIME: 02/05/2017 2:56 pm REASON FOR STUDY: abd pain, post surgical COMPARISON: None. TECHNIQUE: CT scan of the abdomen and pelvis performed using helical scanning technique with dynamic intravenous contrast injection. No oral contrast. Images reviewed with lung, soft tissue, and bone windows. Reconstructed coronal and sagittal MPR images reviewed. Delayed images for evaluation of the urinary system also acquired. All images stored on PACS. All CT scanners at this facility use dose modulation, iterative reconstruction, and/or weight based d osing when appropriate to reduce radiation dose to as low as reasonably achievable (ALARA). [facility]: Dose Right [facility]: CareDose [facility]: Dose Right [facility]: Teradose 4D [facility]: [employer] CONTRAST TYPE AND DOSE: 59 mL Isovue 370 RENAL FUNCTION: None required. The patient is less than 50 years old. RADIATION DOSE: . LIMITATIONS: None. FINDINGS: LOWER CHEST: No significant findings. No nodules or infiltrates. LIVER: Normal size. No masses. No dilated ducts. SPLEEN: Normal size. No focal lesions. PANCREAS: No masses. No significant calcifications. No adjacent inflammation or peripancreatic fluid collections. Pancreatic duct not dilated. GALLBLADDER: Status post cholecystectomy ADRENAL GLANDS: No significant masses or asymmetry. RIGHT KIDNEY AND URETER: No solid masses. No significant calcifications. No hydronephrosis or hyd roureter. LEFT KIDNEY AND URETER: No solid masses. No significant calcifications. No hydronephrosis or hydr oureter. AORTA AND VESSELS: No aneurysm. No dissection. Renal arteries, SMA, celiac without stenosis. RETROPERITONEUM: No retroperitoneal adenopathy, hemorrhage or masses. BOWEL AND PERITONEAL CAVITY: No masses or inflammatory changes. No free fluid or peritoneal masses. APPENDIX: Normal. PELVIS: No mass. No free fluid. Normal bladder. Intrauterine IUD is identified. ABDOMINAL WALL: No masses. No hernias. BONES: No significant or acute findings. OTHER: No other significant finding. IMPRESSION: NO SIGNIFICANT OR ACUTE FINDING IN THE ABDOMEN OR PELVIS ON CT SCAN WITH IV CONTRAST. TECHNICAL DOCUMENTATION: JOB ID: [id number] Quality ID # [id number]: Final reports with documentation of one or more dose reduction techniques (e.g., Au tomated exposure control, adjustment of the mA and/or kV according to patient size, use of iterative reconstruction technique) 2010 [employer]- All Rights Reserved
[2017-02-05 15:34] VITALS: BP 123/52
--- NOTE | 2017-02-06 10:33 | EKG REPORT ---
SEVERITY:- NORMAL ECG - SINUS RHYTHM : Confirmed by: Ayaka Klein MD 06-Feb-2017 10:32:40
== END 2017-02-05 15:34 | disposition home or self-care (01) ==
LOC: ER 12:41
DX: R07.1 Chest pain on breathing (principal); R11.0 Nausea; L29.9 Pruritus, unspecified; T50.905A Adverse effect of unspecified drugs, medicaments and biological substances, initial encounter; R10.11 Right upper quadrant pain; F17.200 Nicotine dependence, unspecified, uncomplicated; Z90.49 Acquired absence of other specified parts of digestive tract; Z91.041 Radiographic dye allergy status
CPT/HCPCS: 93005; 99285; 96361; 96374; 96375; 36415; 82553; 82550; 85025; 80053; 84484; 71275; 74177; 93010; J1200; J2930; J2270; J7030; S0028

== ENCOUNTER 2017-03-10 08:57 | Emergency (ER) | payer MEDICARE ==
[2017-03-10] MEDS ORDERED: METOCLOPRAMIDE HCL ORAL SOLN 10 MG/10 ML UDCUP PO ONE (09:16)
[2017-03-10] MEDS ORDERED: LIDOCAINE 2% VISCOUS SOLN 20 ML UDCUP PO ONE (09:16)
[2017-03-10] MEDS ORDERED: MAG HYDROX/AL HYDROX/SIMETH SUSP 30 ML UDCUP PO ONE (09:16)
--- NOTE | 2017-03-10 09:22 | ER Document Report ---
ED General - General Chief Complaint: Abdominal Pain Stated Complaint: STOMACH PAIN Time Seen by Provider: 03/10/17 09:15 Mode of Arrival: Ambulatory Information source: Patient Notes: 32-year-old female history of chronic abdominal pain since she was 16 presents with complaints of abdominal pain. Patient notes last month she was seen and diagnosed with gallbladder disease had her gallbladder taken out, afterwards she was seen at another emergency department and noted that her liver enzymes were elevated, patient states she has no pain on her right side that the pain started this morning on her left side. Patient admits to history of gastric reflux Patient denies any fevers chills nausea vomiting or diarrhea TRAVEL OUTSIDE OF THE [place] IN LAST 30 DAYS: No - HPI Onset: Just prior to arrival Onset/Duration: Sudden Quality of pain: Sharp Severity: Mild Pain Level: 1 Associated symptoms: Other Exacerbated by: Denies Relieved by: Denies Similar symptoms previously: Yes Recently seen / treated by doctor: Yes - Related Data Allergies/Adverse Reactions: oral contrast Allergy (Uncoded 02/05/17 12:50) Past Medical History - Social History Smoking Status: Current Every Day Smoker Cigarette use (# per day): Yes Chew tobacco use (# tins/day): No Smoking Education Provided: No Frequency of alcohol use: None Drug Abuse: None Family History: Reviewed & Not Pertinent Patient has suicidal ideation: No Patient has homicidal ideation: No Renal/ Medical History: Denies: Hx Peritoneal Dialysis Psychiatric Medical History: Reports: Hx Depression - anxiety Traumatic Medical History: Reports: Hx Fractures - back Past Surgical History: Reports: Hx Cholecystectomy, Hx Orthopedic Surgery - bilateral carpal tunnel, hand surgery Review of Systems - Review of Systems Notes: REVIEW OF SYSTEMS: CONSTITUTIONAL : Denies fever, chills, or sweats. Denies recent illness. EENT: Denies eye, ear, throat, or mouth pain or symptoms. Denies nasal or sinus congestion or discharge. Denies throat, tongue, or mouth swelling or difficulty swallowing. CARDIOVASCULAR: Denies chest pain. Denies palpitations or racing or irregular heart beat. Denies ankle edema. RESPIRATORY: Denies cough, cold, or chest congestion. Denies shortness of breath, difficulty breathing, or wheezing. GASTROINTESTINAL: Admits to left upper quadrant abdominal pain GENITOURINARY: Denies difficulty urinating, painful urination, burning, frequency, blood in urine, or discharge. FEMALE GENITOURINARY: Denies vaginal bleeding, heavy or abnormal periods, irregular periods. Denies vaginal discharge or odor. MUSCULOSKELETAL: Denies back or neck pain or stiffness. Denies joint pain or swelling. SKIN: Denies rash, lesions or sores. HEMATOLOGIC : Denies easy bruising or bleeding. LYMPHATIC: Denies swollen, enlarged glands. NEUROLOGICAL: Denies confusion or altered mental status. Denies passing out or loss of consciousness. Denies dizziness or lightheadedness. Denies headache. Denies weakness or paralysis or loss of use of either side. Denies problems with gait or speech. Denies sensory loss, numbness, or tingling. Denies seizures. PSYCHIATRIC: Denies anxiety or stress. Denies depression, suicidal ideation, or homicidal ideation. ALL OTHER SYSTEMS REVIEWED AND NEGATIVE. PHYSICAL EXAMINATION: GENERAL: Well-appearing, well-nourished and in no acute distress. HEAD: Atraumatic, normocephalic. EYES: Pupils equal round and reactive to light, extraocular movements intact, conjunctiva are normal. ENT: Nares patent, oropharynx clear without exudates. Moist mucous membranes. NECK: Normal range of motion, supple without lymphadenopathy LUNGS: Breath sounds clear to auscultation bilaterally and equal. No wheezes rales or rhonchi. HEART: Regular rate and rhythm without murmurs ABDOMEN: Soft, minimal tenderness left upper quadrant no rebound or guarding postsurgical changes noted. Female : deferred Musculoskeletal: Normal range of motion, no pitting or edema. No cyanosis. NEUROLOGICAL: Cranial nerves grossly intact. Normal speech, normal gait. Normal sensory, motor exams PSYCH: Normal mood, normal affect. SKIN: Warm, Dry, normal turgor, no rashes or lesions noted. Dictation was performed using [employer] voice recognition software Physical Exam - Vital signs Vitals: Temp Pulse Resp BP Pulse Ox 98.3 F 91 20 119/54 L 98 03/10/17 09:02 03/10/17 09:02 03/10/17 09:02 03/10/17 09:02 03/10/17 09:02 Course - Re-evaluation Re-evalutation: 03/10/17 09:23 Physical examination is quite benign, patient's vital signs mild tachycardia upon arrival but otherwise she looks well 03/10/17 11:10 Patient was given Bentyl which resolved her pain, I will send her home with same as follow-up with GI, patient is very happy with this plan otherwise her liver enzymes are negative and she feels much better Mild white count elevation was noted secondary to pain patient is afebrile After performing a Medical Screening Examination, I estimate there is LOW risk for ACUTE APPENDICITIS, BOWEL OBSTRUCTION, ACUTE CHOLECYSTITIS, PERFORATED DIVERTICULITIS, INCARCERATED HERNIA, PANCREATITIS, PELVIC INFLAMMATORY DISEASE, PERFORATED ULCER, ECTOPIC , or TUBO-OVARIAN ABSCESS, thus I consider the discharge disposition reasonable. Also, there is no evidence or peritonitis , sepsis, or toxicity. I have reevaluated this patient multiple times and no significant life threatening changes are noted. The patient and I have discussed the diagnosis and risks, and we agree with discharging home with close follow-up with the understanding that symptoms and presentations can change. We also discussed returning to the Emergency Department immediately if new or worsening symptoms occur. We have discussed the symptoms which are most concerning (e.g., bloody stool, fever, changing or worsening pain, vomiting) that necessitate immediate return. - Vital Signs Vital signs: Temp Pulse Resp BP Pulse Ox 98.3 F 91 20 119/54 L 98 03/10/17 09:02 03/10/17 09:02 03/10/17 09:02 03/10/17 09:02 03/10/17 09:02 - Laboratory Result Diagrams: 03/10/17 09:20 03/10/17 09:20 Laboratory results interpreted by me: 03/10/17 03/10/17 09:20 09:20 WBC 13.6 H RDW 14.4 H Seg Neutrophils % 84.3 H Lymphocytes % 10.3 L Absolute Neutrophils 11.5 H Glucose 147 H AST 11 L Discharge - Discharge Clinical Impression: Abdominal pain Qualifiers: Abdominal location: left upper quadrant Qualified Code(s): R10.12 - Left upper quadrant pain Condition: Stable Disposition: HOME, SELF-CARE Instructions: Antispasmodics ([facility]), Abdominal Pain ([facility]) Prescriptions: Dicyclomine HCl [Bentyl 20 mg Tablet] 20 mg PO QID #40 tablet Referrals: JUDSON ALMONTE MD [ACTIVE STAFF] - Follow up tomorrow
[2017-03-10 09:39] LABS: ABSOLUTE LYMPHOCYTES (AUTO) 1.4 10^3/uL (0.5-4.7); ABSOLUTE MONOCYTES (AUTO) 0.7 10^3/uL (0.1-1.4); ABSOLUTE NEUT (AUTO) 11.5 10^3/uL (1.7-8.2); BASOPHILS % (AUTO) 0.2 % (0-2); EOSINOPHILS % (AUTO) 0.3 % (0-6); HEMATOCRIT 40.2 % (36.0-47.0); HEMOGLOBIN 13.6 g/dL (12.0-15.5); HGB HCT DIFFERENCE 0.6; LYMPHOCYTES % (AUTO) 10.3 % (13-45); MEAN CORPUSCULAR HEMOGLOBIN 30.7 pg (27.0-33.4); MEAN CORPUSCULAR HGB CONC 33.9 g/dL (32.0-36.0); MEAN CORPUSCULAR VOLUME 91 fl (80-97); MONOCYTES % (AUTO) 4.9 % (3-13); RED BLOOD COUNT 4.43 10^6/uL (3.72-5.28); RED CELL DISTRIBUTION WIDTH 14.4 % (11.5-14.0); SEGMENTED NEUTROPHILS % (AUTO) 84.3 % (42-78); WHITE BLOOD COUNT 13.6 10^3/uL (4.0-10.5)
[2017-03-10 09:57] LABS: ALANINE AMINOTRANSFERASE 23 U/L (9-52); ALBUMIN 4.6 g/dL (3.5-5.0); ALKALINE PHOSPHATASE 39 U/L (38-126); ANION GAP 15 (5-19); ASPARTATE AMINO TRANSFERASE 11 U/L (14-36); BILIRUBIN,DIRECT 0.3 mg/dL (0.0-0.4); BILIRUBIN,TOTAL 0.7 mg/dL (0.2-1.3); BLOOD UREA NITROGEN 16 mg/dL (7-20); CALCIUM 9.6 mg/dL (8.4-10.2); CARBON DIOXIDE 25 mmol/L (22-30); CHLORIDE 102 mmol/L (98-107); CREATININE RESULT 0.78 mg/dL (0.52-1.25); GLUCOSE 147 mg/dL (75-110); LIPASE 104.1 U/L (23-300); POTASSIUM 4.6 mmol/L (3.6-5.0); SODIUM 141.9 mmol/L (137-145); TOTAL PROTEIN 7.4 g/dL (6.3-8.2)
[2017-03-10] MEDS ORDERED: KETOROLAC TROMETHAMINE 60 MG/2 ML SDV IM ONE (10:12)
[2017-03-10] MEDS ORDERED: DICYCLOMINE HCL INJ 20 MG/2 ML AMPULE IM ONE (10:13)
[2017-03-10 10:25] LABS: APPEARANCE,URINE CLEAR; BILIRUBIN,URINE NEGATIVE (NEGATIVE); GLUCOSE, URINE NEGATIVE (NEGATIVE); KETONES,URINE NEGATIVE (NEGATIVE); LEUKOCYTE ESTERASE,URINE NEGATIVE (NEGATIVE); NITRITE,URINE NEGATIVE (NEGATIVE); PROTEIN,URINE NEGATIVE (NEGATIVE); URINE SPECIFIC GRAVITY 1.012; UROBILINOGEN,URINE NEGATIVE mg/dL (<2.0)
[2017-03-10 11:19] VITALS: BP 110/56
== END 2017-03-10 11:21 | disposition home or self-care (01) ==
LOC: ER 08:57
DX: R10.12 Left upper quadrant pain (principal); G89.29 Other chronic pain; F17.210 Nicotine dependence, cigarettes, uncomplicated; Z90.49 Acquired absence of other specified parts of digestive tract
CPT/HCPCS: 99284; 96372; 36415; 83690; 84703; 85025; 80053; 81001; J0500; J1885; J3490; A9270

== ENCOUNTER → 2017-06-01 | Outpatient (CLI) | payer MEDICARE, MEDICAID | LOC: OD 15:27 | PROVIDERS: ATTEND Family Medicine | DX: M54.5 Low back pain (principal); M45.9 Ankylosing spondylitis of unspecified sites in spine | CPT/HCPCS: 36415; 85652; 86140; 86812 ==

== ENCOUNTER → 2017-09-16 | Day surgery (SDC) | payer MEDICARE ==
[~2017-09-16] MED LIST: BUPIVACAINE HCL 0.5 % INJ/PF 30 ML SDV ONE; LIDOCAINE 1% INJ-PF (10 MG/ML) 30 ML SDV ONE
--- NOTE | 2017-09-16 12:45 | Operative Report ---
PREOPERATIVE DIAGNOSIS: Spondylolisis without myopathy or radiculopathy M47.818 POSTOPERATIVE DIAGNOSIS:Spondylolisis without myopathy or radiculopathy M47.818 PROCEDURE: 1. Radiofrequency Ablation of bilateral L5 dorsal Ramus 2. Sacroiliac Joint Ablation - Lateral Branches of bilateral S1, S2, S3 DATE OF PROCEDURE: 16 Sep 2017 ANESTHESIA: Local COMPLICATIONS: None CONSENT: A full description of the procedure was provided including benefits as well as possible complications. All questions were answered and informed consent was given and signed. ASA guidelines for fasting were verified prior to sedation. PROCEDURE IN DETAIL The patient was brought into the fluoroscopy suite and carefully assisted into the prone position on the fluoroscopy table and allowed to adjust to a position of comfort. A grounding pad was placed on the right thigh. The low back and buttocks were widely prepped with a chloraprep solution, allowed to air dry and draped in standard sterile surgical fashion. Local anesthesia was provided by 12 mL of 1 % lidocaine delivered with a 25 g needle. PROCEDURE #1: Radiofrequency Ablation of Dorsal Ramus of bilateral L5. A 17g 100mm radiofrequency introducer needle was placed to the planned anatomic target, guided with intermittent fluoroscopy with a perpendicular approach, to terminally place at the bilateral sacral ala. The stylets were removed and the radiofrequency probes with a 4mm active tip were then inserted. Needle tip position of the probes were verified in the AP, oblique, and lateral views. At each site, the medial branch nerve was stimulated at 2Hz to a maximum of 1- 2volts determined to finalize safe needle and electrode placement. The patient was awake and responsive during this portion of the procedure. Each target was anesthetized with 2mL of 2 % Sensorcaine anesthesia for lesioning and then each target was lesioned at 80 degrees Celsius for 2 minutes and 30 seconds. Tissue impedences were noted to be between 250 and 500 Ohms. PROCEDURE #2: Radiofrequency Ablation of bilateral S1, S2, S3 Lateral Branches Using the AP fluoroscopic view for visualization of the lateral PSFA as defined by the pre-placed 27-gauge Quincke needles, appropriate skin starting positions were defined. Using the PSFA as a "clock-face", the positions were: S1; Right = 1 oclock and 5 oclock S2; Right = 1 oclock and 5 oclock S3; Right = 1 3 oclock Using fluoroscopic guidance, a 17g introducer needle was inserted sequentially onto the target positions described above until the introducer tip touched the bony surface of the sacrum. The stylet was withdrawn from the introducer and the radiofrequency probe with a 4 mm active tip was fully inserted into the introducer. A lateral view was obtained for standard reference. At each of the targets, needle placement was verified with the use of multi-planar fluoroscopy. The needle tip position was approximately 7 - 10mm lateral to the PSFA as determined by using an Epsilon ruler. At each site, the lateral branch nerve was stimulated at 2 Hz to a maximum of 1- 2 volts determined to finalize safe needle and electrode placement. The patient was awake and responsive during this portion of the procedure. Each target was anesthetized with 2 mL of 2 % Sensorcaine anesthesia for lesioning and then each target was lesioned at 80 degrees Celsius for 2 minutes and 30 seconds. Tissue impedences were noted to be between 250- 500 Ohms. At the conclusion of the lesioning the needles were removed and bandages placed over the needle placement sites and the patient returned to the supine position on a stretcher and transported to the recovery room without hemodynamic, neurologic, or allergic reactions. Fluoroscopic images were printed for hard copy recording and digitally archived. FLUOROSCOPIC INTERPRETATION: Appropriate epidurogram obtained. Appropriate lesioning of the 10 targets noted. POST PROCEDURE EVALUATION: The patient was comfortable in the recovery room. The patient is aware that pain may worsen before remitting and 4 6 weeks may be required prior to the onset of pain relief. IMPRESSION: 1. Technically successful sacral lateral branch, lumbar dorsal ramus for denervation from L5-S3 on the bilateral without complication. 2. RTC in 2 weeks. 3. Estimated Blood Loss: None 4. Fluoroscopy time: 30 seconds
== END ==
LOC: RAD 12:04
PROVIDERS: ATTEND Family Medicine
DX: M47.818 Spondylosis without myelopathy or radiculopathy, sacral and sacrococcygeal region (principal)
CPT/HCPCS: 64635 ×2; 64640 ×6; J3490 ×2

== ENCOUNTER → 2020-03-21 | Day surgery (SDC) | payer MEDICAID, MEDICARE ==
--- NOTE | 2020-03-21 13:05 | RADIOLOGY REPORT (SQ) ---
EXAM DESCRIPTION: ARTHRO WRIST INJECTION; FLUORO/NEEDLE PLACEMENT IMAGES COMPLETED DATE/TIME: 03/21/2020 11:06 am REASON FOR STUDY: (S63.501A)UNSPECIFIED SPRAIN OF RIGHT WRIST, INITIAL ENCOUNTER S63.501A UNSPECIFI ED SPRAIN OF RIGHT WRIST, INITIAL ENCOUNTE COMPARISON: None. FLUOROSCOPY TIME: 13 seconds of fluoroscopy was used. 1 images saved to PACS. LIMITATIONS: None. PROCEDURE: Procedure, risks, benefits and alternatives explained to patient who then gave written co nsent. The right wrist was marked and a time-out was called for correct marking verification. Radioc arpal site marked using fluoroscopic guidance. Wrist prepped and draped using sterile technique. Lo keegan anesthesia achieved using 1% lidocaine injection. Hypodermic needle introduced into the joint sp marsha under direct fluoroscopic visualization. Non-ionic contrast instilled to confirm intra-articular position. Dilute gadolinium solution then injected. Needle removed and entry site covered with steri le bandage. No immediate complications noted. TECHNIQUE: Digital images acquired during fluoroscopy and stored on PACS. Patient immediately take n to the MR suite for additional imaging. INJECTION LOCATION: Right wrist. CONTRAST TYPE AND AMOUNT: 2 mL Prohance/Saline mixture. IMPRESSION: SUCCESSFUL NEEDLE PLACEMENT AND INJECTION FOR RIGHT WRIST MR ARTHROGRAM. COMMENT: Quality ID #[id number]: Final reports for procedures using fluoroscopy that document radiation exp osure indices, or exposure time and number of fluorographic images (if radiation exposure indices are not available) TECHNICAL DOCUMENTATION: JOB ID: [id number] 2010 [employer]- All Rights Reserved Reading location - IP/workstation name: [email or web address] [id number]
--- NOTE | 2020-03-21 13:05 | RADIOLOGY REPORT (SQ) ---
EXAM DESCRIPTION: ARTHRO WRIST INJECTION; FLUORO/NEEDLE PLACEMENT IMAGES COMPLETED DATE/TIME: 03/21/2020 11:06 am REASON FOR STUDY: (S63.501A)UNSPECIFIED SPRAIN OF RIGHT WRIST, INITIAL ENCOUNTER S63.501A UNSPECIFI ED SPRAIN OF RIGHT WRIST, INITIAL ENCOUNTE COMPARISON: None. FLUOROSCOPY TIME: 13 seconds of fluoroscopy was used. 1 images saved to PACS. LIMITATIONS: None. PROCEDURE: Procedure, risks, benefits and alternatives explained to patient who then gave written co nsent. The right wrist was marked and a time-out was called for correct marking verification. Radioc arpal site marked using fluoroscopic guidance. Wrist prepped and draped using sterile technique. Lo keegan anesthesia achieved using 1% lidocaine injection. Hypodermic needle introduced into the joint sp marsha under direct fluoroscopic visualization. Non-ionic contrast instilled to confirm intra-articular position. Dilute gadolinium solution then injected. Needle removed and entry site covered with steri le bandage. No immediate complications noted. TECHNIQUE: Digital images acquired during fluoroscopy and stored on PACS. Patient immediately take n to the MR suite for additional imaging. INJECTION LOCATION: Right wrist. CONTRAST TYPE AND AMOUNT: 2 mL Prohance/Saline mixture. IMPRESSION: SUCCESSFUL NEEDLE PLACEMENT AND INJECTION FOR RIGHT WRIST MR ARTHROGRAM. COMMENT: Quality ID #[id number]: Final reports for procedures using fluoroscopy that document radiation exp osure indices, or exposure time and number of fluorographic images (if radiation exposure indices are not available) TECHNICAL DOCUMENTATION: JOB ID: [id number] 2010 [employer]- All Rights Reserved Reading location - IP/workstation name: [email or web address] [id number]
--- NOTE | 2020-03-21 16:31 | RADIOLOGY REPORT (SQ) ---
EXAM DESCRIPTION: MRI RT UPPER JOINT WITH IMAGES COMPLETED DATE/TIME: 03/21/2020 11:03 am REASON FOR STUDY: (S63.501A)UNSPECIFIED SPRAIN OF RIGHT WRIST, INITIAL ENCOUNTER S63.501A UNSPECIFI ED SPRAIN OF RIGHT WRIST, INITIAL ENCOUNTE COMPARISON: None. TECHNIQUE: Right wrist post-arthrogram imaging includes T1 and T1 and T2 fat sat sequences. LIMITATIONS: None. FINDINGS: JOINT DISTENSION: Adequate. No loose body. BONE MARROW: No alteration of signal to suggest marrow replacement or edema. No occult fracture. No l arge osteophytes. Incidental note is made of a small subcortical cyst involving the capitate, likely degenerative in nature. No adjacent marrow edema. CARPAL ALIGNMENT AND ARTICULATION: Normal congruity of sigmoid notch at level of distal RUJ without p ositive or negative ulnar variance. Normal capitolunate angle. No widening of scapholunate articulati on. SCAPHOLUNATE LIGAMENT: Without tear. No contrast in middle carpal compartment. LUNATO-TRIQUETRAL LIGAMENT: Without tear. No contrast in middle carpal compartment. TFC COMPLEX: There is a focal tear/perforation of the triangular fibrocartilage with contrast seen wi thin the distal radioulnar joint. Additionally, there is also a tear of the ulnotriquetral ligament. EXTRINSIC LIGAMENTS AND DISTAL RADIO-ULNAR JOINT: Dorsal and volar distal RUJ ligaments intact withou t subluxation of the distal ulna with respect to the radius. 1-6 EXTENSOR COMPARTMENTS: Normal. Specifically no tendinopathy of the abductor pollicis longus or ex tensor pollicis brevis to suggest de Quervains syndrome. CARPAL TUNNEL AND MEDIAN NERVE: Normal volume and morphology of carpal tunnel proximal at the level o f the radiocarpal joint and distally at the hook of the hamate. No thickening or signal alteration of median nerve. OTHER: A tiny ganglion cyst is seen along the volar aspect of the distal radius. IMPRESSION: Triangular fibrocartilage perforation with ulnotriquetral ligament tear. Neutral ulnar variance. Tiny volar ganglion cyst extending from the radiocarpal joint. TECHNICAL DOCUMENTATION: JOB ID: [id number] 2010 [employer]- All Rights Reserved Reading location - IP/workstation name: [email or web address]
== END ==
LOC: RAD 09:46
PROVIDERS: ATTEND Orthopaedic Surgery
DX: S63.501A Unspecified sprain of right wrist, initial encounter (principal); X58.XXXA Exposure to other specified factors, initial encounter
CPT/HCPCS: 73222; 25246; 77002; A9576